=== PATIENT | female | born 1950 | race Caucasian/White ===

== ENCOUNTER 2021-03-02 06:49 | Emergency (ER) | payer OTHER, SELFPAY ==
[2021-03-02 07:00] VITALS: BP 165/88; PULSE 81; RESP 16; TEMP 36.7; O2SAT 98
--- NOTE | 2021-03-02 07:00 | DI.RAD_ITS ---
Exam(s) XR PORTABLE CHEST AP EXAM: XR PORTABLE CHEST AP CLINICAL HISTORY: COVID + TECHNIQUE: COMPARISON: No exams were available for comparison FINDINGS: The heart appears mildly enlarged. Lungs are grossly clear and well expanded. No pleural effusion s een on this frontal film. IMPRESSION: No evidence of acute process. RADIATION DOSE DELIVERED: Total DLP
--- NOTE | 2021-03-02 07:51 | W.ED.GENAD ---
Discharge Plan Disposition Patient Disposition: HOME Condition: Good Discharge Details Clinical Impression: COVID Primary Care Provider: Unknown,Unknown ED Provider: Jason Khan Home Meds and New Rx's Prescriptions: No Action No Known Home Meds RF: 0 Discharge Instructions Instructions: COVID-19 (Coronavirus Disease 2019) (ED) Additional Instructions: Home to rest today. Small, frequent sips of fluids so that you maintain good hydration. Our care management team will reach out to you for further instructions on your follow-up on monoclonal antibody infusions. Your COVID-19 test was positive today. You should continue to self isolate and take precautions against spreading the virus. Tylenol and ibuprofen as needed for pain. Medical Decision Making <Cristian Lal DO - Last Filed: 03/02/21 07:56> 70-year-old female with no past medical history who presents today for suspected Covid. 9 days ago the patient tested Covid positive. She and her have not gotten a Covid vaccine. Shortly after he came down with his symptoms she came down with similar symptoms of cough, fever, chills and body aches mild sore throat. She has been symptomatic for the last 4-7 days. She denies chest pain, significant shortness of breath, neck pain, hemoptysis, nausea, vomiting, diarrhea. Patient has no other complaints at this time. No other modifying factors. Physical exam demonstrates a notably reassuring, no hypoxemia, tachycardia, or fever. Lung sounds are notably clear, no calf tenderness. Symptoms appear inconsistent with pulmonary embolism. Patient has requested immunoglobulin therapy. I did discuss with her that literature has shown that it is less effective when started later in the course of the illness, however the patient understands this. She is still requesting it if it is an option. We will get a chest x-ray out of an abundance of precaution, perform a Covid test to confirm her Covid status, and start the IV immunoglobulin therapy if she is Covid positive. Case will be signed out to my colleague Dr. Jason Khan for reassessment after imaging, and medication. <Jason Khan MD - Last Filed: 03/02/21 10:34> Received signout from Dr. Lal. Please see his note regarding details of the presentation, exam and plan of care. Chest x-ray no focal infiltrte, question r airspace disease. Patient improved with fluids. She indeed is Covid positive. They have received their initial monoclonal antibody infusion and will ask care management to arrange subsequent follow-up. Stable and appropriate for discharge to home. HPI <Cristian Lal DO - Last Filed: 03/02/21 07:56> General Date/Time Provider Initiated Documentation: 03/02/21 06:56. HPI Narrative: 70-year-old female with no past medical history who presents today for suspected Covid. 9 days ago the patient tested Covid positive. She and her have not gotten a Covid vaccine. Shortly after he came down with his symptoms she came down with similar symptoms of cough, fever, chills and body aches mild sore throat. She has been symptomatic for the last 4-7 days. She denies chest pain, significant shortness of breath, neck pain, hemoptysis, nausea, vomiting, diarrhea. Patient has no other complaints at this time. No other modifying factors. Related Data Home Medications Medication Instructions Recorded Confirmed Unknown [No Known Home Meds] 03/02/21 03/02/21 Allergies Allergy/AdvReac Type Severity Reaction Status Date / Time No Known Allergies Allergy Unverified 03/02/21 07:26 General Stated Complaint: RespSymp TRACY: 3 Review of Systems <Cristian Lal DO - Last Filed: 03/02/21 07:56> All systems reviewed & are unremarkable except as noted in HPI and below PFSH <Cristian Lal DO - Last Filed: 03/02/21 07:56> Medical History Bronchiolitis Social History Smoking/Tobacco Use Status: Former Tobacco Use Smoking risk assessment performed?: Yes Alcohol Intake: current Alcohol Intake frequency: a few times a week Alcohol type: hard liquor Drug use: Never Substance use type: does not use Do you feel safe at home: Yes Do you feel safe in your relationship?: Yes Exam <Cristian Lal DO - Last Filed: 03/02/21 07:56> Narrative Exam Narrative: 1.Const: Well-nourished, Well-developed, appearing stated age 2.Eyes: PERRL, no conjunctival injection, and symmetrical lids. 3.ENT: Atraumatic external nose and ears. Moist MM. Neck: Symmetric, trachea midline, No thyromegaly. No erythema in the posterior oropharynx. No tonsillar enlargement or tonsillar exudate. 4.CVS: +S1/S2, No murmurs or gallops. Peripheral pulses 2+ and equal in all extremities. Brisk capillary refill in all extremities. 5.RESP: Unlabored respiratory effort. Clear to auscultation bilaterally. No wheezes rales or rhonchi 6.GI: Soft, Nontender/Nondistended, No hepatosplenomegaly. No guarding or rebound. 7.MSK: Normocephalic/Atraumatic, Extremities w/o deformity or ttp No cyanosis or clubbing, Normal movement of all extremities, no calf tenderness. 8.Skin: Warm, Dry. No rashes or lesions. 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 Sensation grossly intact, no focal neurologic deficits. 10.Psych: (AAO) x3. Appropriate mood and affect Course <Cristian Lal DO - Last Filed: 03/02/21 07:56> Vital Signs Vital signs: Vital Signs Temperature 36.7 C 03/02/21 07:00 Pulse 81 03/02/21 07:00 Respiratory Rate 16 03/02/21 07:00 Blood Pressure 165/88 H 03/02/21 07:00 Pulse Oximetry 98 03/02/21 07:00 Temperature 36.7 C 03/02/21 07:00 Temperature Source Oral 03/02/21 07:00 Pulse 81 03/02/21 07:00 Respiratory Rate 16 03/02/21 07:00 Respiratory Effort 03/02/21 07:27 Respiratory Depth Normal 03/02/21 07:27 Blood Pressure 165/88 H 03/02/21 07:00 Pulse Oximetry 98 03/02/21 07:00 Oxygen Delivery Method Room Air 03/02/21 07:00 Oxygen Flow Rate 0 03/02/21 07:00 Pain Level 7 03/02/21 07:00 Sign Out <DO Leonor Lopes Last Filed: 03/02/21 07:56> Sign Out Data: Sign Out Comment: Suspected Covid, pending x-ray and immunoglobulin infusion if Covid positive Last updated by Cristian Lal DO at 03/02/21 08:11
[2021-03-02] MEDS: Normal Saline 500 ML IV (08:37)
[2021-03-02] MEDS: Albuterol/Ipratropium 3 ML UPD VIAL UPD (08:41)
[2021-03-02 09:27] LABS: COVID-19 PCR POSITIVE (Negative)
--- NOTE | 2021-03-02 10:16 | DI.VRAD_ITS ---
PROCEDURE INFORMATION: Exam: XR Chest Exam date and time: 03/02/2021 7:12 AM Age: 70 years old Clinical indication: Other: Covid + TECHNIQUE: Imaging protocol: XR of the chest. Views: 1 view. COMPARISON: No relevant prior studies available. FINDINGS: Lungs: Question mild right basilar airspace disease. Pleural spaces: No large pleural effusion. Heart/Mediastinum: Mild cardiomegaly. Vasculature: Aorta is tortuous. Bones/joints: Unremarkable. IMPRESSION: Questioned early right basilar pneumonia. Dictated and Authenticated by: Gisela Adames MD. Ordering:ANNA MARIE Foster MD
[2021-03-02 12:09] VITALS: BP 142/82; PULSE 74; RESP 16; TEMP 36.8; O2SAT 99
--- NOTE | 2021-03-02 18:03 | NUR.NOTE ---
referral send to care management and covid infusion for antibody infusion.
--- NOTE | 2021-03-03 13:39 | PDOC.ERCMPRO ---
- If Service Date Differs Date of service: 03/03/21 Time of Service: 13:39 Care Management Progress Note Cynthia is seen in the ED on 03/02/21 for symptoms of Covid. While in the ED, she received a monoclonal antibody infusion and was told that CM would schedule an appointment for an additional infusion. CM contacts Cynthia to advise her that monoclonal antibody infusion is a onetime infusion only.
== END 2021-03-02 11:49 | disposition home or self-care (01) ==
PROVIDERS: Student in an Organized Health Care Education/Training Program; Emergency Provider Emergency Medicine
DX: U07.1 COVID-19 (principal)
CPT/HCPCS: 87635; 94640; 96360; 96361; 96365; 99284; 71045; J7620